=== PATIENT | female | born 1980 | race Caucasian/White ===

== ENCOUNTER 2020-10-12 20:54 | Observation (INO) ==
[2020-10-12] MEDS ORDERED: Gadolinium Contrast Agent (WT Based) IV PRN (21:19)
[2020-10-12] MEDS ORDERED: diazePAM 10 MG/2 ML SYRINGE IVP STA (21:19)
[2020-10-12 21:47] LABS: Basophils % 0.5 %; Eosinophils # 0.2 K/mcL (0.0-0.6); Eosinophils % 2.2 %; Hematocrit 36.5 % (35.3-44.9); Immature Granulocytes % 0.2 % (0-4); Lymphocytes # 2.2 K/mcL (0.6-4.6); Lymphocytes % 25.3 %; Mean Corpuscular HGB Conc 32.9 g/dL (31.6-35.5); Mean Corpuscular Hemoglobin 32.5 pg (28.0-33.3); Mean Corpuscular Volume 98.9 fL (83.0-100.0); Mean Platelet Volume 10.6 fL (9.4-12.4); Monocytes % 11.5 %; Neutrophils # 5.3 K/mcL (1.6-8.9); Platelet Count 217 K/mcL (140-400); Red Blood Count 3.69 M/mcL (3.82-4.97); Segmented Neutrophils % 60.3 %; White Blood Count 8.8 K/mcL (4.3-11.1)
[2020-10-12 22:05] LABS: Bilirubin,Urine Negative (Negative); Blood,Urine Negative (Negative); Clarity,Urine Clear (Clear); Color,Urine Colorless (Yellow); Glucose,Urine (UA) Normal (Normal); Ketones,Urine Negative (Negative); Leukocyte Esterase,Urine Negative (Negative); Nitrite,Urine Negative (Negative); Protein,Urine Negative (Neg-Trace); Specific Gravity,Urine 1.011 (1.010-1.025); Urobilinogen,Urine Normal (Normal)
[2020-10-12 22:06] LABS: BUN/Creatinine Ratio 17 (6-26); Blood Urea Nitrogen 10 mg/dL (6-20); Calcium 9.2 mg/dL (8.6-10.3); Carbon Dioxide 28 mEq/L (23-29); Chloride 102 mEq/L (98-107); Glucose 100 mg/dL (70-105); Osmolality,Calculated 281 (280-300); Potassium 4.1 mEq/L (3.5-5.1); Sodium 136 mEq/L (136-145); eGFR For African Americans > 60 (> 60); eGFR For Non-African Americans > 60 (> 60)
[2020-10-12] MEDS ORDERED: Morphine Sulfate 2 MG/ML SYRINGE IVP ONE (22:33)
[2020-10-13] MEDS ORDERED: Morphine Sulfate 2 MG/ML SYRINGE IVP ONE (00:06)
[2020-10-13] MEDS ORDERED: Ondansetron 4 MG/2 ML VIAL IM ONE ×2 (00:29→00:45)
[2020-10-13] MEDS ORDERED: Ondansetron 4 MG/2 ML VIAL IVP ONE (00:45)
[2020-10-13] MEDS ORDERED: Naloxone 0.4 MG/ML INJ IVP PRN (01:00)
[2020-10-13] MEDS ORDERED: Ondansetron 4 MG/2 ML VIAL IVP PRN (01:00)
[2020-10-13] MEDS ORDERED: Morphine Sulfate 2 MG/ML SYRINGE IVP PRN (01:01)
[2020-10-13 02:30] LABS: Basophils % 0.5 %; Eosinophils # 0.2 K/mcL (0.0-0.6); Eosinophils % 2.2 %; Hemoglobin 12.3 g/dL (11.5-15.4); Immature Granulocytes % 0.3 % (0-4); Lymphocytes # 2.3 K/mcL (0.6-4.6); Lymphocytes % 26.8 %; Mean Corpuscular HGB Conc 33.2 g/dL (31.6-35.5); Mean Corpuscular Hemoglobin 32.6 pg (28.0-33.3); Mean Corpuscular Volume 98.1 fL (83.0-100.0); Monocytes # 0.9 K/mcL (0.0-1.3); Monocytes % 9.9 %; Neutrophils # 5.2 K/mcL (1.6-8.9); Platelet Count 222 K/mcL (140-400); Red Blood Count 3.77 M/mcL (3.82-4.97); Segmented Neutrophils % 60.3 %; White Blood Count 8.7 K/mcL (4.3-11.1)
[2020-10-13 02:37] LABS: Prothrombin Time 11.2 Seconds (9.4-12.1)
[2020-10-13 02:54] LABS: BUN/Creatinine Ratio 16 (6-26); Blood Urea Nitrogen 9 mg/dL (6-20); Carbon Dioxide 26 mEq/L (23-29); Chloride 105 mEq/L (98-107); Glucose 90 mg/dL (70-105); Osmolality,Calculated 286 (280-300); Potassium 3.8 mEq/L (3.5-5.1); Sodium 139 mEq/L (136-145); eGFR For African Americans > 60 (> 60); eGFR For Non-African Americans > 60 (> 60)
[2020-10-13] MEDS ORDERED: *HR* Heparin 5,000 UNIT/ML VIAL SQ SCH (06:00)
[2020-10-13] MEDS: *HR* HYDROcodone/Acet 5/325 mg TABLET PO SCH ×2 (06:34→12:02)
[2020-10-13] MEDS ORDERED: Gabapentin 300 MG CAPSULE PO SCH ×2 (09:00→15:00)
[2020-10-13] MEDS ORDERED: MethylPREDNISolone 40 MG/ML VIAL IVP SCH (09:00)
[2020-10-13] MEDS ORDERED: diazePAM 2 MG TABLET PO PRN (10:41)
[2020-10-13 11:14] VITALS: BP 109/73
[2020-10-13] MEDS ORDERED: Pregabalin 25 MG CAPSULE PO SCH (15:00)
== END 2020-10-13 16:35 | disposition home or self-care (01) ==
LOC: 3NENU 20:54 → EMEROOARM 20:54 → SUATTDRO 10-13 01:24 → 3NENU 10-13 01:41
PROVIDERS: ADMIT Internal Medicine; ATTEND Internal Medicine